=== PATIENT | male | born 1995 | race African-American/Black ===

== ENCOUNTER 2019-11-28 22:38 | Emergency (ER) | payer OTHER ==
--- NOTE | 2019-11-28 23:46 | ED ---
Complex/Multi-Sys Presentation - HPI Summary HPI Summary: 24 y/o [place]ian speaking M presenting to [facility] c/o sore throat, headache, malaise , fatigue 2 days ago. 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 He denies fever, cough, chest pain. No known exposure to confirmed COVID19. Patient wants to be tested for COVID because he feels poorly and wants to know what's wrong with him. He has been drinking tea for his sore throat. Symptoms aggravated by nothing. Symptoms alleviated by tea. Hx Dengue x3. He was told to never take aspirin because it gives him seizures. Medications reviewed. Surgical hx: circumcision. FHx stroke. Smokes cigarettes. - History Of Current Complaint Chief Complaint: EDHeadache Time Seen by Provider: 11/28/19 23:03 Hx Obtained From: Patient Onset/Duration: Lasting Days - 2, Still Present Timing: Constant Severity Currently: Severe - 04/01 Aggravating Factor(s): Nothing Alleviating Factor(s): Nothing PMH/Surg Hx/FS Hx/Imm Hx Endocrine/Hematology History: Denies: Hx Diabetes Cardiovascular History: Denies: Hx Hypertension - Surgical History Surgical History: Yes Surgery Procedure, Year, and Place: circumsion Infectious Disease History: Denies: Traveled Outside the [place] in Last 30 Days - Family History Known Family History: Positive: Other - stroke - Social History Alcohol Use: None Substance Use Type: Reports: None Hx Tobacco Use: Yes Smoking Status (MU): Current Some Day Smoker - Additional Comments History Additional Comments: Hx Dengue x3 Review of Systems Positive: Fatigue, Other - malaise. Negative: Fever Positive: Sore Throat Negative: Chest Pain Negative: Cough Positive: Headache All Other Systems Reviewed And Are Negative: Yes Physical Exam - Summary Physical Exam Summary: General: Well-developed, Well-nourished MALE. No acute distress. HEENT: Normocephalic, Atraumatic. Eyes: Conjuctiva normal, PERRL. Oropharynx: Erythematous, mucous membranes moist, (-) exudates. Neck: Soft, FROM, (-) lymphadenopathy, (-) thyromegaly, (-) JVD. Cardiovascular: Normal sinus rhythm, (-) murmur. Lungs: Clear to auscultation bilaterally (-) wheezes, (-) rales, (-) rhonchi. Abdomen: Soft, non-tender, non-distended, (-) organomegaly, normal bowel sounds. Back: (-) CVA tenderness Extremities: No edema. Skin: Warm, dry, (-) rash. Neuro: Alert and oriented x3, moves all extremities equally. No ataxia. No gait disturbance. No sensory deficit. Normal strength, normal sensation. Psychiatric: Mood normal, affect normal. Triage Information Reviewed: Yes Vital Signs On Initial Exam: Initial Vitals Pulse Resp Pulse Ox 68 17 100 11/28/19 22:57 11/28/19 22:57 11/28/19 22:57 Vital Signs Reviewed: Yes Procedures - Sedation Patient Received Moderate/Deep Sedation with Procedure: No Diagnostics - Vital Signs Vital Signs Temp Pulse Resp BP Pulse Ox 11/28/19 23:19 97.7 F 62 16 135/76 99 11/28/19 23:00 62 15 100 11/28/19 22:58 64 16 135/76 100 11/28/19 22:57 68 17 100 - Laboratory Result Diagrams: 11/29/19 01:00 11/29/19 01:00 Lab Statement: Any lab studies that have been ordered have been reviewed, and results considered in the medical decision making process. Re-Evaluation - Re-Evaluation First Eval Re-Evaluation Time: 02:12 Change: Improved - I discussed all results and sx have resolved. Discussed all symptoms that warrant return to the ED. Complex Multi-Symp Course/Dx Course Of Treatment: 24-year-old male presents from home with sore throat. He states he developed sore throat since yesterday. Developed headache as well. Has been trying to drink tea without any improvement. Feels achy malaise. No fevers. No cough, chest pain, shortness of breath. He would like to be tested for Covid. No known exposure. States he feels awful once and was wrong with him. He does have a history of dengue fever. States he had it 3 times. He has an erythematous oropharynx and physical exam is not significantly ill- appearing. Workup demonstrates negative influenza, strep throat, mono. Normal white count. Afebrile. Covid pending. Patient discharged home. Advised Tylenol fluids and rest. Self quarantine until the results of the tests are available. Follow-up with PCP, sooner for any worsening symptoms. - Diagnoses Provider Diagnoses: Tobacco use, Viral syndrome Discharge ED - Sign-Out/Discharge Documenting (check all that apply): Patient Departure - Discharge Plan Condition: Stable Disposition: HOME Patient Education Materials: Viral Syndrome (ED), COVID-19 (Coronavirus Disease 2019) (ED) Print Language: TRINIDADIAN Forms: COVID-19 Tested & Isolation Referrals: [facility] [Outside] - 3 Days Additional Instructions: Please follow up with [facility] within three days. Please return to the Emergency Department for any new or worsening symptoms. - Billing Disposition and Condition Condition: STABLE Disposition: Home - Attestation Statements Document Initiated by Scribe: Yes Documenting Scribe: Dodie Gilliland Provider For Whom Scribe is Documenting (Include Credential): Rachele Jorgensen MD Scribe Attestation: Dodie Jameson, scribed for Rachele Jorgensen MD on 11/29/19 at 0435. Scribe Documentation Reviewed: Yes Provider Attestation: The documentation as recorded by the Dodie vásquez accurately reflects the service I personally performed and the decisions made by Rachele saucedo MD Status of Scribe Document: Viewed
[2019-11-29 01:26] LABS: ABS Eosinophils 0.1 10^3/ul (0-0.6); ABS Lymphocytes 2.2 10^3/ul (1.0-4.8); ABS Monocytes 0.6 10^3/ul (0-0.8); ABS Neutrophils 3.4 10^3/ul (1.5-7.7); Eosinophil % 1.8 %; Hematocrit 47 % (42-52); Hemoglobin 16.3 g/dL (14.0-18.0); Lymphocyte % 34.3 %; Mean Corpuscular HGB Conc 35 g/dL (31-36); Mean Corpuscular Hemoglobin 30 pg (27-31); Mean Corpuscular Volume 87 fL (80-94); Mean Platelet Volume 10.4 fL (7.4-10.4); Nucleated Red Blood Cells % 0.1; Platelet Count 143 10^3/uL (150-450); Red Blood Count 5.41 10^6 /uL (4.18-5.48); Red Cell Distribution Width 13 % (10-15); White Blood Count 6.3 10^3/uL (3.5-10.8)
[2019-11-29 01:42] LABS: Influenza A Molecular Negative (Negative); Influenza B Molecular Negative (Negative)
[2019-11-29 01:47] LABS: Rapid Strep Molecular Negative (Negative)
[2019-11-29 02:00] LABS: Albumin 4.7 g/dL (3.2-5.2); Anion Gap 5 mmol/L (2-11); CO2 Carbon Dioxide 29 mmol/L (22-32); Calcium 9.2 mg/dL (8.6-10.3); Chloride 104 mmol/L (101-111); Potassium 4.6 mmol/L (3.5-5.0); Sodium 138 mmol/L (135-145)
[2019-11-29 02:06] LABS: ALT 40 U/L (7-52); AST 36 U/L (13-39); Albumin/Globulin Ratio 1.8 (1-3); Alkaline Phosphatase 54 U/L (34-104); BUN/Creatinine Ratio 13.9 (8-20); Blood Urea Nitrogen 14 mg/dL (6-24); C Reactive Protein < 1.00 mg/L (<8.01); EGFR African American 111.8 (>60); EGFR Non-African American 92.4 (>60); Globulin 2.6 g/dL (2-4); Glucose 81 mg/dL (70-100); Total Protein 7.3 g/dL (6.4-8.9)
[2019-11-29 02:31] VITALS: BP 131/75
== END 2019-11-29 02:31 | disposition home or self-care (01) ==
LOC: ED 22:38
DX: U07.1 COVID-19 (principal); B34.9 Viral infection, unspecified; F17.210 Nicotine dependence, cigarettes, uncomplicated
CPT/HCPCS: 36415; 80053; 85025; 86140; 86308; 87635; 87651; 99283; G2023